=== PATIENT | male | born 1960 | race Caucasian/White ===

== ENCOUNTER 2017-10-03 14:57 | Emergency (ER) | payer OTHER ==
[~2017-10-03] VITALS: Ht 175.3 cm; Wt 63.5 kg
[2017-10-03 14:59] VITALS: TEMP 36.8; Ht 175.3 cm; Wt 63.5 kg
--- NOTE | 2017-10-03 15:37 | EMERGENCY ROOM VISIT NOTE ---
History Report prepared by Mily: Francis García Under the Supervision of: Dr. Nella Gallardo D.O. First contact with patient: 15:10 Chief Complaint: MENTAL HEALTH EVALUATION Stated Complaint: CHRONIC SCHIZOPHRENIA History of Present Illness The patient is a 56 year old male who presents to the Emergency Room for a mental health evaluation. He has a past medical history of schizophrenia. The patient was evaluated last night at our facility for his similar symptoms. He did not meet criteria for hospitalization so he was discharged with orders to follow up with his psychiatrist. He did so today, but they sent him back here hoping for inpatient treatment. He denies any recent injuries, illnesses, or medication changes. He has done inpatient mental health therapy in the past. He has constant auditory and visual hallucinations. He states that the voices say that they want to murder him. They do not tell him to hurt himself or others, but he has thought about many ways to "make the voices go away." He denies any homicidal ideation or suicidal ideation. He would just like the voices to go away. Source of History: patient Onset: Recently Position: other (Mental Health) Symptom Intensity: moderate Quality: other (Mental Health) Timing: constant, worsening Note: He denies any abnormal physical symptoms. He denies any suicidal ideation or homicidal ideation. He is experiencing auditory and visual hallucinations. Review of Systems See HPI for pertinent positives & negatives. A total of 10 systems reviewed and were otherwise negative. Past Medical & Surgical Medical Problems: (1) Schizophrenia Family History Omitted secondary to the patient's age. Social History Smoking Status: Former Smoker Smokeless Tobacco Use: No Drug Use: none Marital Status: single Current/Historical Medications Scheduled Acetaminophen (Tylenol), 1,000 MG PO QAM B-Complex Vitamins (B Complex), 1 CAP PO QAM Coenzyme Q10 (Ubidecarenone) (Co Q10), 200 MG PO QAM Allergies Uncoded Allergies: NEUROLYPTIC ANTI-PSYCHOTIC DRUGS (Allergy, Intermediate, Hypersensitive, ) Physical Exam Vital Signs Date Time Temp Pulse Resp B/P (MAP) Pulse Ox O2 Delivery O2 Flow Rate FiO2 10/03/17 22:26 74 18 134/71 100 10/03/17 17:00 71 14 136/82 99 Room Air 10/03/17 14:59 36.8 78 18 138/82 96 Room Air Physical Exam GENERAL: alert, well appearing, well nourished, no distress, non-toxic EYE EXAM: normal conjunctiva OROPHARYNX: no exudate, no erythema, lips, buccal mucosa, and tongue normal and mucous membranes are moist NECK: supple, no nuchal rigidity, no adenopathy, non-tender LUNGS: Clear to auscultation. Normal chest wall mechanics HEART: no murmurs, S1 normal and S2 normal ABDOMEN: abdomen soft, non-tender, normo-active bowel sounds, no masses, no rebound or guarding. BACK: Back is symmetrical on inspection and there is no deformity, no midline tenderness, no CVA tenderness. SKIN: no rashes and no bruising UPPER EXTREMITIES: upper extremities are grossly normal. LOWER EXTREMITIES: No pitting edema. NEURO EXAM: Normal sensorium, cranial nerves II-XII grossly intact, normal speech, no gross weakness of arms, no gross weakness of legs. PSYCH EXAM: Patient is cooperative and pleasant. Mildly flat affect. Admits to auditory and visual hallucinations. Medical Decision & Procedures Laboratory Results Test 10/03/17 16:50 Urine Opiates Screen NEG (NEG) Urine Methadone, Qualitative NEG (NEG) Urine Barbiturates NEG (NEG) Urine Phencyclidine (PCP) Level NEG (NEG) Ur Amphetamine/Methamphetamine NEG (NEG) MDMA (Ecstasy) Screen NEG (NEG) Urine Benzodiazepines Screen NEG (NEG) Urine Cocaine Metabolite NEG (NEG) Urine Marijuana (THC) NEG (NEG) Laboratory results per my review. ED Course 1510: The patient was evaluated in room A8. A complete history and physical exam was performed. 2137: The patient was accepted to the [facility] for further management and care. He will be transferred there. Voluntary admission for signed. Transfer papers signed. Medical Decision Differential diagnosis: Etiologies such as mood disorder, infection, hypoglycemia, electrolyte abnormalities, cardiac sources, intracerebral event, toxicologic, neurologic, as well as others were entertained. Medication Reconcilliation Current Medication List: was personally reviewed by me Blood Pressure Screening Patient's blood pressure: Elevated blood pressure Blood pressure disposition: Elevated BP felt to be situational Impression Primary Impression: Schizophrenia Scribe Attestation The scribe's documentation has been prepared under my direction and personally reviewed by me in its entirety. I confirm that the note above accurately reflects all work, treatment, procedures, and medical decision making performed by me. Departure Information Dispostion Mental Health Acute Care Referrals No Doctor, Assigned (PCP) Patient Instructions My [facility] Problem Qualifiers Primary Impression: Schizophrenia Schizophrenia type: unspecified Qualified Codes: F20.9 - Schizophrenia, unspecified
[2017-10-03] MEDS ORDERED: ACET-1256 PO (16:05)
[2017-10-03] MEDS ORDERED: COEN1CAP28 PO (16:05)
[2017-10-03] MEDS ORDERED: B-CO1CAP3 PO (16:05)
[2017-10-03 17:28] LABS: BENZODIAZEPINE, URINE NEG (NEG); COCAINE,URINE NEG (NEG); PHENCYCLIDINE, URINE NEG (NEG)
[2017-10-03 22:26] VITALS: BP 134/71; PULSE 74; O2SAT 100
== END 2017-10-03 22:27 ==
LOC: C.EDB 14:57 → C.EDA 22:27
DX: F20.9 Schizophrenia, unspecified (principal); Z87.891 Personal history of nicotine dependence; Z79.899 Other long term (current) drug therapy

== ENCOUNTER 2018-03-02 13:30 | Emergency (ER) | payer OTHER ==
[~2018-03-02] VITALS: Ht 177.8 cm; Wt 60.1 kg
[~2018-03-02 13:30] MED LIST: ACET-1256 PO; B-CO1CAP3 PO; COEN1CAP28 PO
[2018-03-02 13:35] VITALS: TEMP 36.7; Ht 177.8 cm; Wt 60.1 kg
--- NOTE | 2018-03-02 14:07 | EMERGENCY ROOM VISIT NOTE ---
History Report prepared by Mily: Iglesia Barth Under the Supervision of: Dr. Sanford Elizalde M.D. First contact with patient: 14:00 Chief Complaint: MENTAL HEALTH EVALUATION Stated Complaint: DEPRESSION History of Present Illness The patient is a 57 year old male who presents to the Emergency Room with complaints of a worsening need for a mental health evaluation today. Per the psych behavioral health case manager, the patient has been hearing voices telling him to kill himself recently. He lives in a halfway and went group grocery shopping at [employer] today, but laid down on the floor and refused to get up. The patient was then brought here for treatment and evaluation. Upon questioning in the room, the patient does not answer. History limited secondary to patient's lack of cooperation. Source of History: other (psych behavioral health case manager) History Limited By: poor cooperation Onset: Today Position: other (global) Symptom Intensity: laid down in [facility] and refused to get up Quality: other (need for mental health evaluation) Timing: worsening Note: Associated symptoms: Hearing voices telling him to kill himself. Review of Systems ROS limited secondary to patient's lack of cooperation. Past Medical & Surgical Medical Problems: (1) Depression (2) Hallucinations (3) Schizophrenia Family History No pertinent family history Social History Smoking Status: Current Some Day Smoker Housing Status: other (lives in halfway) Occupation Status: unemployed Current/Historical Medications Scheduled Acetaminophen (Tylenol), 1,000 MG PO QAM B-Complex Vitamins (B Complex), 1 CAP PO QAM Coenzyme Q10 (Ubidecarenone) (Co Q10), 200 MG PO QAM Hydroxyzine HCl (Hydroxyzine HCl), 25 MG PO BID Risperidone (Risperdal), 2 MG PO BID Allergies Coded Allergies: Haloperidol (Unverified Allergy, Severe, MULTIPLE, 03/02/18) Uncoded Allergies: NEUROLYPTIC ANTI-PSYCHOTIC DRUGS (Allergy, Intermediate, Hypersensitive, ) Physical Exam Vital Signs Date Time Temp Pulse Resp B/P (MAP) Pulse Ox O2 Delivery O2 Flow Rate FiO2 03/02/18 18:37 64 18 112/73 97 03/02/18 17:57 83 03/02/18 13:35 36.7 80 134/74 99 Room Air Physical Exam GENERAL: Awake, alert, sitting peacefully, won't answer questions, just looks at examiner. HENT: Normocephalic, atraumatic. Oropharynx unremarkable. EYES: Normal conjunctiva. Sclera non-icteric. NECK: Supple. No nuchal rigidity. FROM. No JVD. RESPIRATORY: Clear to auscultation. CARDIAC: Regular rate, normal rhythm. Extremities warm and well perfused. Pulses equal. ABDOMEN: Soft, non-distended. No tenderness to palpation. No rebound or guarding. No masses. RECTAL: Deferred. MUSCULOSKELETAL: Chest examination reveals no tenderness. The back is symmetrical on inspection without obvious abnormality. There is no CVA tenderness to palpation. No joint edema. LOWER EXTREMITIES: Calves are equal size bilaterally and non-tender. No edema. No discoloration. NEURO: Normal sensorium. No sensory or motor deficits noted. SKIN: No rash or jaundice noted. PSYCH: Sitting peacefully, won't answer questions, just looks at examiner. Medical Decision & Procedures Laboratory Results 03/02/18 14:14 Red Blood Count 4.66, Mean Corpuscular Volume 91.2, Mean Corpuscular Hemoglobin 32.8, Mean Corpuscular Hemoglobin Concent 36.0, Mean Platelet Volume 8.9, Neutrophils (%) (Auto) 76.9, Lymphocytes (%) (Auto) 16.1, Monocytes (%) (Auto) 5.6, Eosinophils (%) (Auto) 0.8, Basophils (%) (Auto) 0.4, Neutrophils # (Auto) 6.88, Lymphocytes # (Auto) 1.44, Monocytes # (Auto) 0.50, Eosinophils # (Auto) 0.07, Basophils # (Auto) 0.04 03/02/18 14:14 Test 03/02/18 13:45 03/02/18 14:14 Urine Color YELLOW Urine Appearance CLEAR (CLEAR) Urine pH 7.0 (4.5-7.5) Urine Specific [place] 1.016 (1.000-1.030) Urine Protein NEG (NEG) Urine Glucose (UA) NEG (NEG) Urine Ketones NEG (NEG) Urine Occult Blood NEG (NEG) Urine Nitrite NEG (NEG) Urine Bilirubin NEG (NEG) Urine Urobilinogen NEG (NEG) Urine Leukocyte Esterase NEG (NEG) Urine Opiates Screen NEG (NEG) Urine Methadone, Qualitative NEG (NEG) Urine Barbiturates NEG (NEG) Urine Phencyclidine (PCP) Level NEG (NEG) Ur Amphetamine/Methamphetamine NEG (NEG) MDMA (Ecstasy) Screen NEG (NEG) Urine Benzodiazepines Screen NEG (NEG) Urine Cocaine Metabolite NEG (NEG) Urine Marijuana (THC) NEG (NEG) White Blood Count 8.95 K/uL (4.8-10.8) Red Blood Count 4.66 M/uL (4.7-6.1) Hemoglobin 15.3 g/dL (14.0-18.0) Hematocrit 42.5 % (42-52) Mean Corpuscular Volume 91.2 fL (80-100) Mean Corpuscular Hemoglobin 32.8 pg (25-34) Mean Corpuscular Hemoglobin Concent 36.0 g/dl (32-36) Platelet Count 204 K/uL (130-400) Mean Platelet Volume 8.9 fL (7.4-10.4) Neutrophils (%) (Auto) 76.9 % Lymphocytes (%) (Auto) 16.1 % Monocytes (%) (Auto) 5.6 % Eosinophils (%) (Auto) 0.8 % Basophils (%) (Auto) 0.4 % Neutrophils # (Auto) 6.88 K/uL (1.4-6.5) Lymphocytes # (Auto) 1.44 K/uL (1.2-3.4) Monocytes # (Auto) 0.50 K/uL (0.11-0.59) Eosinophils # (Auto) 0.07 K/uL (0-0.5) Basophils # (Auto) 0.04 K/uL (0-0.2) RDW Standard Deviation 44.0 fL (36.4-46.3) RDW Coefficient of Variation 13.3 % (11.5-14.5) Immature Granulocyte % (Auto) 0.2 % Immature Granulocyte # (Auto) 0.02 K/uL (0.00-0.02) Anion Gap 6.0 mmol/L (3-11) Est Creatinine Clear Calc Drug Dose 67.3 ml/min Estimated GFR () 93.0 Estimated GFR (Non- 80.3 BUN/Creatinine Ratio 13.6 (10-20) Calcium Level 8.0 mg/dl (8.5-10.1) Total Bilirubin 0.3 mg/dl (0.2-1) Direct Bilirubin < 0.1 mg/dl (0-0.2) Aspartate Amino Transf (AST/SGOT) 19 U/L (15-37) Alanine Aminotransferase (ALT/SGPT) 25 U/L (12-78) Alkaline Phosphatase 43 U/L (45-117) Total Protein 5.3 gm/dl (6.4-8.2) Albumin 2.7 gm/dl (3.4-5.0) Thyroid Stimulating Hormone (TSH) 0.905 uIu/ml (0.300-4.500) Ethyl Alcohol mg/dL < 3.0 mg/dl (0-3) Labs reviewed by ED physician. ED Course 1400: Past medical records reviewed. The patient was evaluated in room A6. A limiting history and physical examination was performed. 1750: I was notified that the patient was accepted to [facility] for further mental health treatment. The patient is agreeable with the plan. 2100: Risperdal Tab 2 mg PO, Risperdal Tab 1 mg PO, Vistaril Tab 25 mg PO. Medical Decision Differential diagnosis: Etiologies such as mood disorder, infection, hypoglycemia, electrolyte abnormalities, cardiac sources, intracerebral event, toxicologic, neurologic, as well as others were entertained. This is a 57-year-old male who presents the emergency department after complaining of hallucinations and wishing to . The patient is nonverbal to me in the emergency department. He did consent to blood work as well as a urinalysis. I did discuss the case with the psychiatric liaison who agreed to see the patient. The patient was accepted to [facility] and was transferred without incident. Medication Reconcilliation Current Medication List: was personally reviewed by me Blood Pressure Screening Patient's blood pressure: Elevated blood pressure Blood pressure disposition: Elevated BP felt to be situational Impression Primary Impression: Mood disorder Scribe Attestation The scribe's documentation has been prepared under my direction and personally reviewed by me in its entirety. I confirm that the note above accurately reflects all work, treatment, procedures, and medical decision making performed by me. Departure Information Dispostion Transfer Acute Care Facility (to [facility]) Patient Instructions My [facility]
[2018-03-02 14:32] LABS: BASO % 0.4 %; BASO ABS # 0.04 K/uL (0-0.2); EOS % 0.8 %; EOS ABS # 0.07 K/uL (0-0.5); HEMATOCRIT 42.5 % (42-52); HEMOGLOBIN 15.3 g/dL (14.0-18.0); IG# 0.02 K/uL (0.00-0.02); LYMPH % 16.1 %; LYMPH ABS # 1.44 K/uL (1.2-3.4); MEAN CELL VOLUME 91.2 fL (80-100); MEAN CORPUSCULAR HEMOGLOBIN 32.8 pg (25-34); MEAN PLATELET VOLUME 8.9 fL (7.4-10.4); MONO % 5.6 %; NEUT % 76.9 %; NEUT ABS # 6.88 K/uL (1.4-6.5); PLATELET COUNT 204 K/uL (130-400); RED CELL DISTRIBUTION WIDTH CV 13.3 % (11.5-14.5); WHITE BLOOD COUNT 8.95 K/uL (4.8-10.8)
[2018-03-02] MEDS ORDERED: RISP2TAB22 PO (14:40)
[2018-03-02 14:43] LABS: ALBUMIN 2.7 gm/dl (3.4-5.0); ALT/SGPT 25 U/L (12-78); BLOOD UREA NITROGEN 14 mg/dl (7-18); CARBON DIOXIDE 30 mmol/L (21-32); CREATININE 1.03 mg/dl (0.60-1.40); GLUCOSE 103 mg/dl (70-99); POTASSIUM 3.5 mmol/L (3.5-5.1); SODIUM 141 mmol/L (136-145)
[2018-03-02] MEDS ORDERED: ATR25 PO (14:47)
[2018-03-02 14:54] LABS: ALKALINE PHOSPHATASE 43 U/L (45-117); AST/SGOT 19 U/L (15-37); TOTAL PROTEIN 5.3 gm/dl (6.4-8.2)
[2018-03-02 18:37] VITALS: BP 112/73; PULSE 64; O2SAT 97
[2018-03-02] MEDS ORDERED: RISPERIDONE 1 MG TAB PO SCH (21:00)
[2018-03-02] MEDS ORDERED: RISPERIDONE 2 MG TAB PO SCH (21:00)
[2018-03-02] MEDS ORDERED: hydrOXYzine HCL 25 MG TAB PO SCH (21:00)
== END 2018-03-02 18:39 ==
LOC: MERGE 13:35 → C.EDA 13:35

== ENCOUNTER → 2018-06-14 | Outpatient (CLI) | payer OTHER ==
[~2018-06-14] MED LIST changes: +ATR25 PO; +RISP2TAB22 PO
[2018-06-14 14:47] LABS: BASO % 0.3 %; BASO ABS # 0.03 K/uL (0-0.2); EOS % 2.8 %; EOS ABS # 0.26 K/uL (0-0.5); HEMATOCRIT 42.5 % (42-52); HEMOGLOBIN 15.4 g/dL (14.0-18.0); IG# 0.01 K/uL (0.00-0.02); LYMPH % 23.5 %; LYMPH ABS # 2.21 K/uL (1.2-3.4); MEAN CELL VOLUME 91.4 fL (80-100); MEAN CORPUSCULAR HEMOGLOBIN 33.1 pg (25-34); MEAN CORPUSCULAR HGB CONC 36.2 g/dl (32-36); MEAN PLATELET VOLUME 9.1 fL (7.4-10.4); MONO % 8.5 %; NEUT % 64.8 %; NEUT ABS # 6.09 K/uL (1.4-6.5); PLATELET COUNT 263 K/uL (130-400); RED CELL DISTRIBUTION WIDTH CV 12.7 % (11.5-14.5); RED CELL DISTRIBUTION WIDTH SD 42.7 fL (36.4-46.3)
[2018-06-14 15:21] LABS: ALKALINE PHOSPHATASE 63 U/L (45-117); ALT/SGPT 34 U/L (12-78); AST/SGOT 25 U/L (15-37); BLOOD UREA NITROGEN 11 mg/dl (7-18); CARBON DIOXIDE 27 mmol/L (21-32); CHOLESTEROL 230 mg/dl (0-200); CREATININE 0.86 mg/dl (0.60-1.40); GLUCOSE 93 mg/dl (70-99); LDL CHOLESTEROL CALCULATED 148 mg/dl; POTASSIUM 4.2 mmol/L (3.5-5.1); SODIUM 135 mmol/L (136-145); TOTAL PROTEIN 7.5 gm/dl (6.4-8.2)
== END | disposition home or self-care (01) ==
LOC: C.LAB 13:18
PROVIDERS: ATTEND Family Medicine
DX: Z00.00 Encounter for general adult medical examination without abnormal findings (principal)